=== PATIENT | female | born 1955 | race Caucasian/White ===

== ENCOUNTER 2017-10-26 02:38 | Inpatient (IN) | payer OTHER ==
[~2017-10-26] VITALS: Ht 152.4 cm; Wt 102.1 kg
[~2017-10-26 02:38] MED LIST: APAP500 PO; ASPIRIN EC81 M1 PO; AUGMENTIN 875875 MG PO; CEFTIN 250 MG250 MG PO; CIPROFLOXACIN500 M1 PO; GLUCOPHAGE1000 MG PO; HYDROCHLOROTH12.5 MG; HYDROCHLOROTHIAZIDE PO; METFORMIN HCL500 MG; MOBIC15 MG PO; NIACIN 100MG T100 M1; NIACIN FLUSH FREE PO; ONDANSETRON HCL4 M2 PO; ONGLYZA5 MG; PEPCID PO; PERCOCET 5-3251 EACH PO; SIMVASTATIN10 MG PO; TOPROL XL50 MG PO; VITAMIN D1000 UNI1 PO; VITAMIN D400 UNI1; ZOFRAN ODT4 MG PO
[2017-10-26 02:40] VITALS: BP 133/76
[2017-10-26 03:05] LABS: ABSOLUTE NEUTROPHILS 14.1 thou/uL (1.4-8.2); BASOPHILS 0.5 % (0.0-2.0); EOSINOPHILS 0.3 % (0.0-3.0); HEMATOCRIT 45.3 % (37.0-47.0); HEMOGLOBIN 15.3 gm/dL (12.0-15.0); LYMPHOCYTES 9.3 % (24.0-44.0); MCH 30.3 pg (26.0-34.0); MCHC 33.8 g/dL (28.0-37.0); MCV 89.8 fL (80.0-100.0); MONOCYTES 3.8 % (1.0-8.0); PLATELET COUNT 290 thou/uL (150-400); POLYS 86.1 % (36.0-66.0); RBC 5.05 mil/uL (4.20-5.00); WBC 16.4 thou/uL (4.0-11.0)
[2017-10-26 03:14] LABS: CALCIUM 10.1 mg/dL (8.5-10.1); CREATININE 0.9 mg/dL (0.6-1.0); POTASSIUM 4.2 mmol/L (3.5-5.1)
[2017-10-26] MEDS ORDERED: PIOGLITAZONE15 MG (03:16)
[2017-10-26] MEDS ORDERED: FISH OIL 1,001000 M2 PO (03:16)
[2017-10-26] MEDS ORDERED: ZANTAC 150MG T150 MG PO (03:17)
[2017-10-26] MEDS ORDERED: ONDANSETRON ODT4 MG PO (03:18)
[2017-10-26 03:20] LABS: ALBUMIN 4.1 g/dL (3.4-5.0); DIRECT BILIRUBIN 0.1 mg/dL (<0.1-0.3); TOTAL BILIRUBIN 0.5 mg/dL (<0.1-1.0); TOTAL PROTEIN 8.4 g/dL (6.4-8.2)
[2017-10-26 15:33] VITALS: BP 113/55
[2017-10-26 20:48] VITALS: BP 127/67
[2017-10-26 22:11] LABS: GLYCOHEMOGLOBIN (HGB A1C) 8.3 % (4.8-5.6)
[2017-10-27 04:17] VITALS: BP 150/80
[2017-10-27 06:36] LABS: BASOPHILS 0.7 % (0.0-2.0); EOSINOPHILS 1.2 % (0.0-3.0); HEMATOCRIT 38.2 % (37.0-47.0); LYMPHOCYTES 16.2 % (24.0-44.0); MCH 30.5 pg (26.0-34.0); MCHC 34.1 g/dL (28.0-37.0); MCV 89.4 fL (80.0-100.0); MONOCYTES 9.3 % (1.0-8.0); PLATELET COUNT 251 thou/uL (150-400); POLYS 72.6 % (36.0-66.0); RBC 4.27 mil/uL (4.20-5.00); RDW 13.9 % (10.5-14.5); WBC 12.4 thou/uL (4.0-11.0)
[2017-10-27 06:47] LABS: CALCIUM 8.5 mg/dL (8.5-10.1); CREATININE 0.8 mg/dL (0.6-1.0); MAGNESIUM 1.9 mg/dL (1.8-2.4); POTASSIUM 3.6 mmol/L (3.5-5.1)
[2017-10-27 08:32] VITALS: BP 130/66
[2017-10-27 16:33] VITALS: BP 139/65
[2017-10-27 22:02] VITALS: BP 125/61
[2017-10-28 03:33] LABS: HEMATOCRIT 36.9 % (37.0-47.0); HEMOGLOBIN 12.4 gm/dL (12.0-15.0); MCH 30.2 pg (26.0-34.0); MCHC 33.6 g/dL (28.0-37.0); MCV 89.8 fL (80.0-100.0); RBC 4.11 mil/uL (4.20-5.00); RDW 14.3 % (10.5-14.5); WBC 11.1 thou/uL (4.0-11.0)
[2017-10-28 03:57] LABS: CALCIUM 8.6 mg/dL (8.5-10.1); CREATININE 0.6 mg/dL (0.6-1.0); POTASSIUM 3.1 mmol/L (3.5-5.1)
[2017-10-28 04:53] VITALS: BP 130/68
[2017-10-28 08:43] VITALS: BP 143/76
[2017-10-28] MEDS ORDERED: FLAGYL500 MG PO (15:40)
[2017-10-28] MEDS ORDERED: AUGMENTIN 875-1 EACH PO (15:40)
[2017-10-28] MEDS ORDERED: PROTONIX 20 MG20 M1 PO (15:41)
[2017-10-28 15:48] VITALS: BP 113/76
== END 2017-10-28 16:20 | disposition home or self-care (01) | DRG 872 ==
LOC: ER 02:38 → 4S 04:14 → EROBS 04:14 → 4S 15:46 → ENTRNSPT 10-28 16:16 → 4S 10-28 16:20
PROVIDERS: Emergency Medicine; Hospitalist; Nurse Practitioner
DX: A41.9 Sepsis, unspecified organism (principal); K56.7 Ileus, unspecified; K52.9 Noninfective gastroenteritis and colitis, unspecified; E78.5 Hyperlipidemia, unspecified; E11.65 Type 2 diabetes mellitus with hyperglycemia; D72.829 Elevated white blood cell count, unspecified; E78.00 Pure hypercholesterolemia, unspecified; I10 Essential (primary) hypertension; Z96.641 Presence of right artificial hip joint; Z90.49 Acquired absence of other specified parts of digestive tract; Z85.41 Personal history of malignant neoplasm of cervix uteri; Z90.710 Acquired absence of both cervix and uterus; Z92.21 Personal history of antineoplastic chemotherapy; Z92.3 Personal history of irradiation; Z88.1 Allergy status to other antibiotic agents; Z88.2 Allergy status to sulfonamides; Z87.891 Personal history of nicotine dependence; Z80.8 Family history of malignant neoplasm of other organs or systems; Z81.8 Family history of other mental and behavioral disorders; Z79.82 Long term (current) use of aspirin; Z79.899 Other long term (current) drug therapy
CPT/HCPCS: 10195

== ENCOUNTER 2018-11-05 14:40 | Inpatient (IN) | payer OTHER ==
[~2018-11-05] VITALS: Ht 160 cm; Wt 93.4 kg
[~2018-11-05 14:40] MED LIST changes: +AUGMENTIN 875-1 EACH PO; +FISH OIL 1,001000 M2 PO; +FLAGYL500 MG PO; +ONDANSETRON ODT4 MG PO; +PIOGLITAZONE15 MG; +PROTONIX 20 MG20 M1 PO; +ZANTAC 150MG T150 MG PO
[2018-11-05 14:43] VITALS: BP 127/76
[2018-11-05 15:35] LABS: ABSOLUTE NEUTROPHILS 6.7 thou/uL (1.4-8.2); BASOPHILS 0.7 % (0.0-2.0); EOSINOPHILS 0.9 % (0.0-3.0); HEMATOCRIT 39.5 % (37.0-47.0); HEMOGLOBIN 13.1 gm/dL (12.0-15.0); LYMPHOCYTES 18.2 % (24.0-44.0); MCH 29.5 pg (26.0-34.0); MCHC 33.2 g/dL (28.0-37.0); PLATELET COUNT 320 thou/uL (150-400); POLYS 69.2 % (36.0-66.0); RBC 4.44 mil/uL (4.20-5.00); RDW 14.8 % (10.5-14.5); WBC 9.7 thou/uL (4.0-11.0)
[2018-11-05 15:45] LABS: ANION GAP 6 mmol/L (7-16); BUN 16 mg/dL (7-18); CALCIUM 9.4 mg/dL (8.5-10.1); CHLORIDE 98 mmol/L (98-107); CO2 34 mmol/L (21-32); CREATININE 1.1 mg/dL (0.6-1.0); GLUCOSE 168 mg/dL (74-106); POTASSIUM 3.1 mmol/L (3.5-5.1); SODIUM 138 mmol/L (136-145)
[2018-11-05 15:55] LABS: TROPONIN-I <0.06 ng/mL (<0.06)
[2018-11-05 16:20] VITALS: BP 98/62
[2018-11-05 17:26] VITALS: BP 117/57
[2018-11-05 17:51] VITALS: BP 137/68
--- NOTE | 2018-11-05 18:00 | NUR ---
PT REPORTS DRY COUGH X 1 1/2 DAYS..[facility] AND REPORTED LT JAW PAIN AND LT SHOULDER PAIN..CURRENTLY DENIES ANY CHEST PAIN..TROP NEG..
[2018-11-05 19:05] VITALS: BP 108/60
--- NOTE | 2018-11-05 22:11 | EKG ---
[address] [address] ELECTROCARDIOGRAM REPORT Name: MARBIN HATCH Room #: 357-P ADM IN M.R.#: [id number] Admission: 11/05/18 Attend Phys: Alysha More MD Discharge: Date of : 51 Report #: [id number] THIS REPORT FOR: //name// [facility] ED Test Date: 2018-11-05 Test Time: 14:57:30 Pat Name: MARBIN HATCH Department: Room: 357 Gender: F Rag Willow Operator: DEMAR : 1955 Requested By: Tahmina White Order Number: [id number] MD: Naif Estrada Measurements Intervals [place] Rate: 76 P: 31 GA: 145 QRS: -21 QRSD: 94 T: 20 QT: 391 QTc: 440 Interpretive Statements Sinus rhythm Borderline left axis deviation Compared to ECG 08/28/2016 23:35:53 No significant changes Electronically Signed On 11-05-2018 22:11:06 PLANER TAILER by Naif Estrada [email or web address] <ELECTRONICALLY SIGNED> By: Naif Estrada MD 11/05/18 2211 56 56 Naif Estrada MD /SHARLENE
[2018-11-05 23:45] VITALS: BP 102/62
--- NOTE | 2018-11-06 04:39 | NUR ---
pts stays at bedside. she has been resting quietly tonight. denies pain. she has been talkative and friendly. no complaints of needing her cough medicine tonight. gets up ad anderson to the restroom. no concerns voiced.
[2018-11-06 04:50] VITALS: BP 119/71
[2018-11-06 05:20] LABS: HEMATOCRIT 36.5 % (37.0-47.0); HEMOGLOBIN 12.3 gm/dL (12.0-15.0); MCH 29.8 pg (26.0-34.0); MCHC 33.7 g/dL (28.0-37.0); MCV 88.4 fL (80.0-100.0); RBC 4.13 mil/uL (4.20-5.00); RDW 15.2 % (10.5-14.5)
[2018-11-06 05:32] LABS: ALBUMIN 2.8 g/dL (3.4-5.0); ANION GAP 7 mmol/L (7-16); BUN 12 mg/dL (7-18); CALCIUM 9.2 mg/dL (8.5-10.1); CHLORIDE 100 mmol/L (98-107); CO2 32 mmol/L (21-32); CREATININE 0.9 mg/dL (0.6-1.0); GLUCOSE 135 mg/dL (74-106); POTASSIUM 3.1 mmol/L (3.5-5.1); SGOT 13 U/L (15-37); SGPT 15 U/L (30-65); SODIUM 139 mmol/L (136-145); TOTAL BILIRUBIN 0.3 mg/dL (<0.1-1.0); TOTAL PROTEIN 7.1 g/dL (6.4-8.2); TROPONIN-I <0.06 ng/mL (<0.06)
[2018-11-06 07:22] VITALS: BP 107/66
--- NOTE | 2018-11-06 07:44 | NUR ---
I PHONED MOLINA ABOUT MORNING POTASSIUM LEVEL THIS AM. 3.1, HE STATED THAT HE WILL LOOK INTO IT WHEN HE SEES HER. NO FURTHER ORDERS AT THIS TIME.
[2018-11-06 09:16] LABS: CHOLESTEROL 151 mg/dL (<200); HDL CHOLESTEROL 35 mg/dL (>40); LDL CHOLESTEROL 85 mg/dL (<100); TC:HDL 4.3 Ratio (Not establshd); TRIGLYCERIDE 158 mg/dL (<150); VLDL 32 mg/dL (<40)
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
--- NOTE | 2018-11-06 15:56 | 2DMMODE ---
[address] [address] 2 D/M-MODE ECHOCARDIOGRAM Name: ELIANE HATCHYULIANA Torres Room #: 357-P ADM IN M.R.#: [id number] Admission: 11/05/18 Attend Phys: Alysha More, Discharge: Date of : 51 Date of Service: 11/06/18 1556 Report #: [id number] THIS REPORT FOR: //name// APPROVED REPORT Study performed: 11/06/2018 15:08:01 EXAM: Comprehensive 2D, Doppler, and color-flow Echocardiogram Patient Location: Echo lab Room #: 357 Status: routine BSA: 1.93 HR: 53 bpm BP: 107/66 mmHg Rhythm: NSR Other Information Study Quality: Adequate Indications Diabetes Chest Pain Hypertension/HDD 2D Dimensions IVC: 17.00 mm Volumes Left Atrial Volume (Systole) LA ESV Index: 29.00 mL/m2 Tricuspid Valve PA Pressure: 27.00 mmHg Left Ventricle The left ventricle is normal size. Mild concentric left ventricular hypertrophy. The left ventricular systolic function is normal. The left ventricular ejection fraction is within the normal range. LVEF is 50-55%. Grade I - abnormal relaxation pattern. Right Ventricle The right ventricle is normal size. The right ventricular systolic function is normal. [facility] [address] [place] [address] 2 D/M-MODE ECHOCARDIOGRAM Name: MARBIN HATCH Room #: 357-P ADM IN M.R.#: [id number] Admission: 11/05/18 Attend Phys: Alysha More, Discharge: Date of : 51 Date of Service: 11/06/18 1556 Report #: [id number] The left atrium size is normal. The right atrium size is normal. Aortic Valve The aortic valve is normal in structure. No aortic regurgitation is present. There is no aortic valvular stenosis. Mitral Valve The mitral valve is normal in structure. Trace mitral regurgitation. No evidence of mitral valve stenosis. Tricuspid Valve The tricuspid valve is normal in structure. There is trace tricuspid regurgitation. Estimated PAP 27 mmHg. There is no pulmonary hypertension. Pulmonic Valve The pulmonary valve is normal in structure. Trace pulmonic regurgitation. Great Vessels The aortic root is normal in size. IVC is normal in size and collapses >50% with inspiration. Pericardium There is no pericardial effusion. <Conclusion> The left ventricle is normal size. Mild concentric left ventricular hypertrophy. The left ventricular systolic function is normal. Grade I - abnormal relaxation pattern. The right ventricle is normal size. The left atrium size is normal. The aortic valve is normal in structure. Trace mitral regurgitation. There is trace tricuspid regurgitation. Estimated PAP 27 mmHg. <ELECTRONICALLY SIGNED> By: Aaron Paulino MD 11/06/18 1556 1556 1556 Aaron Paulino MD /INF
[2018-11-06 15:58] VITALS: BP 114/57
[2018-11-06 17:28] VITALS: BP 114/57
[2018-11-06 17:50] VITALS: BP 114/57
[2018-11-06 23:11] LABS: GLYCOHEMOGLOBIN (HGB A1C) 8.5 % (4.8-5.6)
--- NOTE | 2018-11-10 09:00 | H ---
[facility] [place] [address] HISTORY AND PHYSICAL Name: MARBIN HATCH Room #: 357-P [facility] IN M.R.#: [id number] Admission: 11/05/18 Attend Phys: Alysha More MD Discharge: 11/06/18 Date of : 51 Report #: [id number] THIS REPORT FOR: //name// CC: Alysha Patricia REASON FOR PRESENTATION: Cough and chest pain. HISTORY OF PRESENT ILLNESS: This is a 63-year-old with past medical history of diabetes mellitus and hypertension. No known coronary artery disease. She is known to have cervical cancer, post-hysterectomy, chemo and radiotherapy. She is also known to have small-bowel obstruction in the past. She is a nonsmoker. She presented to the Emergency Room, reporting that she has been having cough for the last few days after a trip back from [place]. She denies any fever or chills. This morning, she started to have left jaw pain with radiation to the left upper extremity. No chest pain. No nausea or vomiting. No excessive sweating. No syncope. Her mother had heart attack in her 50s. Because of her risk factors, she will be admitted to rule out an acute coronary event. PAST MEDICAL HISTORY: 1. Diabetes mellitus. 2. Hypertension. 3. Post-appendectomy. 4. Post-cholecystectomy. 5. Right hip surgery. 6. Cervical cancer, post-hysterectomy. 7. Bowel obstruction. 8. Exploratory laparotomy. 9. Hyperlipidemia. 10. Ex-smoker. MEDICATIONS: 1. Actos. 2. Ranitidine. 3. Metoprolol. 4. Simvastatin. 5. Aspirin. 6. Hydrochlorothiazide. ALLERGIES: CIPRO, NAPROXEN, SULFA. SOCIAL HISTORY: She is a customer services manager. No drug or alcohol abuse. FAMILY HISTORY: Mom had heart attack. Father was asthmatic. One of her brothers had bone cancer. [facility] [address] [email or web address] [address] HISTORY AND PHYSICAL Name: MARBIN HATCH Room #: 357-P [facility] IN [facility].#: [id number] Admission: 11/05/18 Attend Phys: Alysha More MD Discharge: 11/06/18 Date of : 51 Report #: [id number] REVIEW OF SYSTEMS: GENERAL: Malaise, but no fever or chills. CARDIOVASCULAR: No chest pain. No palpitation. However, positive for jaw pain and left upper extremity pain. PULMONARY: As per the history of present illness. GASTROINTESTINAL: No nausea or vomiting. GENITOURINARY: No frequency, no urgency. MUSCULOSKELETAL: As per the history of present illness. No back pain, no morning stiffness. HEMATOLOGICAL AND LYMPHATIC: No easy bruisability. No epistaxis. PHYSICAL EXAMINATION: GENERAL: She is alert, oriented, in no apparent distress. VITAL SIGNS: Pulse rate is 79, temperature 36.8. HEAD AND NECK: No jugular venous distention, no bruit, no thyromegaly. CHEST: Clear to auscultation bilaterally with no crackles. CARDIOVASCULAR: No rub detected. ABDOMEN: Soft, nontender with no hepatosplenomegaly. LOWER EXTREMITIES: No edema. LABORATORY VALUES: Reviewed. White blood cell count 9.7, hemoglobin 13.1, potassium 3.1, creatinine 1.1. Blood sugar 168. ASSESSMENT, IMPRESSION AND PLAN: 1. Chest pain. 2. Diabetes mellitus. 3. Hypertension. 4. Hyperlipidemia. 5. Known history of cervical cancer. 6. We will admit the patient to rule out acute coronary syndrome. 7. Serial troponins and EKGs. 8. Resume her diabetic medications with sliding scale insulin. 9. Hold hydrochlorothiazide given her low blood pressure. 10. Continue with metoprolol, aspirin, statin. 11. Cardiac consultations. 12. Cardiac echo in the morning. 13. Routine gastrointestinal and deep venous thrombosis prophylaxis. <ELECTRONICALLY SIGNED> By: Alysha More MD 11/10/18 0900 1656 1743 Alysha More MD /nt
== END 2018-11-06 18:01 | disposition home or self-care (01) | DRG 152 ==
LOC: ER 14:40 → EROBS 15:52 → 3W 15:52
PROVIDERS: Emergency Medicine; Nurse Practitioner Adult Health; ADMIT Hospitalist
DX: J06.9 Acute upper respiratory infection, unspecified (principal); E43 Unspecified severe protein-calorie malnutrition; R07.9 Chest pain, unspecified; E11.9 Type 2 diabetes mellitus without complications; I10 Essential (primary) hypertension; R91.1 Solitary pulmonary nodule; R68.84 Jaw pain; E87.6 Hypokalemia; R63.4 Abnormal weight loss; E78.5 Hyperlipidemia, unspecified; Z79.899 Other long term (current) drug therapy; Z88.2 Allergy status to sulfonamides; Z88.8 Allergy status to other drugs, medicaments and biological substances; Z88.1 Allergy status to other antibiotic agents; Z91.040 Latex allergy status; Z85.41 Personal history of malignant neoplasm of cervix uteri; Z90.49 Acquired absence of other specified parts of digestive tract; Z90.710 Acquired absence of both cervix and uterus; Z82.49 Family history of ischemic heart disease and other diseases of the circulatory system; Z87.891 Personal history of nicotine dependence; Z68.36 Body mass index [BMI] 36.0-36.9, adult; Z92.21 Personal history of antineoplastic chemotherapy; Z92.3 Personal history of irradiation
CPT/HCPCS: 10879

== ENCOUNTER 2020-09-04 15:30 | Inpatient (IN) | payer OTHER ==
[~2020-09-04] VITALS: Ht 160 cm; Wt 98.0 kg
[2020-09-04 15:55] VITALS: BP 108/74
[2020-09-04 16:37] LABS: ABSOLUTE NEUTROPHILS 7.5 thou/uL (1.4-8.2); BASOPHILS 0.7 % (0.0-2.0); HEMATOCRIT 44.5 % (37.0-47.0); HEMOGLOBIN 15.4 gm/dL (12.0-15.0); LYMPHOCYTES 16.9 % (24.0-44.0); MCH 31.5 pg (26.0-34.0); MCHC 34.7 g/dL (28.0-37.0); MCV 90.8 fL (80.0-100.0); MONOCYTES 10.2 % (1.0-8.0); PLATELET COUNT 226 thou/uL (150-400); POLYS 72.2 % (36.0-66.0); RDW 13.4 % (10.5-14.5); WBC 10.3 thou/uL (4.0-11.0)
[2020-09-04 16:54] LABS: ALBUMIN 3.4 g/dL (3.4-5.0); ANION GAP 11 mmol/L (7-16); BUN 23 mg/dL (7-18); CALCIUM 9.3 mg/dL (8.5-10.1); CHLORIDE 96 mmol/L (98-107); CO2 28 mmol/L (21-32); CREATININE 1.4 mg/dL (0.6-1.0); DIRECT BILIRUBIN 0.2 mg/dL (<0.1-0.2); GLUCOSE 200 mg/dL (74-106); SGOT 21 U/L (15-37); SGPT 14 U/L (30-65); SODIUM 135 mmol/L (136-145); TOTAL BILIRUBIN 0.6 mg/dL (0.2-1.0); TOTAL PROTEIN 8.5 g/dL (6.4-8.2); TROPONIN-I <0.06 ng/mL (<0.06)
[2020-09-04 16:58] LABS: POTASSIUM 2.6 mmol/L (3.5-5.1)
--- NOTE | 2020-09-04 17:00 | EKG ---
[facility] [place] [address] ELECTROCARDIOGRAM REPORT Name: MARBIN HATCH Room #: PRE [facility]..#: [id number] Admission: Attend Phys: Discharge: Date of : 51 Report #: [id number] THIS REPORT FOR: cc: Candace Abbott Diane C. DO Santiago, Patrick MD [facility] THIS REPORT FOR: //name// [facility] ED Test Date: 2020-09-04 Test Time: 16:11:54 Pat Name: MARBIN HATCH Department: Room: Gender: F Divider Operator: ANILA CURRY : 1955 Requested By: Terry Pyle Order Number: [id number] MD: Guy Arroyo Measurements Intervals [place] Rate: 106 P: 30 LA: 178 QRS: -18 QRSD: 88 T: 72 QT: 348 QTc: 463 Interpretive Statements Sinus tachycardia Probable left atrial enlargement Probable LVH with secondary repol abnrm Compared to ECG 11/05/2018 14:57:30 Sinus rhythm no longer present Electronically Signed On 09-04-2020 17:00:10 SLACKMAN by Guy Arroyo [email or web address] <ELECTRONICALLY SIGNED> By: Guy Arroyo MD, FACC 09/04/20 1700 10 10 Guy Arroyo MD, FAC /EPI
[2020-09-04 17:26] VITALS: BP 110/50
--- NOTE | 2020-09-04 17:31 | NUR ---
THIS NURSE ACCIDENTALLY DOCUMENTED DISCHARGE SUMMARY ON THE WRONG PT.
[2020-09-04 17:43] LABS: HCO3 28.3 mmol/L (22.0-26.0); PCO2 41.5 mmHg (35.0-45.0); PO2 58.4 mmHg (80.0-100.0); pH 7.452 (7.360-7.450); sO2 91.5 % (92.0-98.0)
[2020-09-04 22:06] VITALS: BP 108/74
[2020-09-04 22:21] VITALS: BP 108/53
[2020-09-04 22:39] VITALS: BP 112/90
[2020-09-04 23:04] VITALS: BP 99/54
[2020-09-05 03:04] VITALS: BP 115/56
--- NOTE | 2020-09-05 03:31 | NUR ---
Admission history and assessments completed. Careplan initiated. IVfluids started in ED. Remdesivir started. Patient requiring 4L oxygen/NC sat 94%. Afebrile. Vital signs and rhythm stable. Gait steady , up to BSC without difficulty.
[2020-09-05 06:49] LABS: ALBUMIN 2.6 g/dL (3.4-5.0); CALCIUM 8.1 mg/dL (8.5-10.1); CREATININE 0.9 mg/dL (0.6-1.0); POTASSIUM 3.3 mmol/L (3.5-5.1); TOTAL BILIRUBIN 0.3 mg/dL (0.2-1.0); TOTAL PROTEIN 6.9 g/dL (6.4-8.2)
[2020-09-05 08:40] VITALS: BP 125/57
--- NOTE | 2020-09-05 10:46 | NUR ---
PT. CALM THIS AM, PLEASANT OVERALL NO SIGN'S OF DISTRESS, BREATHING WELL NO SIGN'S OF LABORED BREATHING. ANSWERD QUESTIONS ABOUT DISEASE PROCESS OVERALL. AMBULATES TO CHAIR FOR EXERCISE. NSR TO SB NO ECTOPY. IV FLUSHED AND BLOOD RETURN OBTAINED. CALL LIGHT WITHIN REACH.
--- NOTE | 2020-09-05 11:05 | NUR ---
Patient admits with cough/weakness. Patient positive for COVID 19. Spoke with patient via phone. patient works at [employer] in [place] [employer]. She lives at home with spouse and family. She has 2 dtrs and son. Son resides in [place]. Her PCP Dr Muñoz from [facility]. 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 She drives and works. She reports her employment aware she is at hospital. She is currrently on oxygen. 2 steps to enter home and flight of steps to basement. Patients dtr Kelly John is currently in room [address] [facility] ICU COVID positive on a vent. Patient reports her granddtr, Clifford dtr will be in [facility]. She reports her granddtr is coming from [place]. She is in [employer] and [employer] assisted with her coming home. Her dtr Kiara also has COVID and remains at home. She reports her spouse does not have. Casemgt following for dc planning.
--- NOTE | 2020-09-05 17:40 | NUR ---
PT. DID NOT EAT MUCH OF HER DINNER TONIGHT-20%. ON 2L NASAL CANNULA AND DENIES ANY SOB. NEW IF IS IN LEFT FOREARN-UNDERAM AREA PER IV TEAM, FLUSHES WITH STRONG BLOOD RETURN. RESUMED IV INFUSION THAT WAS ON HOLD UNTILWE GOT A NEW IV LINE PLACED. SAID HER CHEST FEELS "SORE A LITTE"-WHEN SHE COUGHS REALLY HARD BUT NOT AT REST OR TALKING. VERY PLEASANT WOMAN AND APPRECIATIVE OF HER CARE, "MY FAMILY [facility] AND MY DAUGHTER GAVE TO HER TWINS HERE 21 YEARS AGO"..
[2020-09-05 19:19] VITALS: BP 118/66
[2020-09-06 03:48] VITALS: BP 106/53
--- NOTE | 2020-09-06 04:17 | NUR ---
ASSESSED AT START OF SHIFT. PT A&OX4. UP TO THE BSC. HAD A BM HIS SHIFT. IV INTACT [facility] FLUIDS INFUSING. DENIES CHST PAIN, N/V. BSG CHECKED AND INSULIN GIVEN. ON 3L OF O2. CALL LIGHT AT REACH AND WILL CONT WITH POC TILL EOS.
[2020-09-06 06:08] LABS: ABSOLUTE NEUTROPHILS 5.3 thou/uL (1.4-8.2); BASOPHILS 0.1 % (0.0-2.0); HEMATOCRIT 37.2 % (37.0-47.0); LYMPHOCYTES 15.6 % (24.0-44.0); MCH 30.6 pg (26.0-34.0); MCHC 33.1 g/dL (28.0-37.0); MCV 92.3 fL (80.0-100.0); MONOCYTES 11.9 % (1.0-8.0); PLATELET COUNT 223 thou/uL (150-400); POLYS 72.4 % (36.0-66.0); RBC 4.03 mil/uL (4.20-5.00); RDW 14.1 % (10.5-14.5); WBC 7.3 thou/uL (4.0-11.0)
[2020-09-06 06:13] LABS: HEMOGLOBIN 12.3 gm/dL (12.0-15.0)
[2020-09-06 06:17] LABS: FIBRINOGEN 326.1 mg/dL (210-360); INR 1.2
[2020-09-06 06:19] LABS: ALBUMIN 2.5 g/dL (3.4-5.0); CALCIUM 8.7 mg/dL (8.5-10.1); CREATININE 0.9 mg/dL (0.6-1.0); POTASSIUM 4.1 mmol/L (3.5-5.1); TOTAL BILIRUBIN 0.2 mg/dL (0.2-1.0); TOTAL PROTEIN 6.3 g/dL (6.4-8.2)
[2020-09-06 06:21] LABS: ALBUMIN 2.5 g/dL (3.4-5.0); DIRECT BILIRUBIN < 0.1 mg/dL (<0.1-0.2); SGOT 14 U/L (15-37); SGPT 12 U/L (30-65); TOTAL BILIRUBIN 0.2 mg/dL (0.2-1.0); TOTAL PROTEIN 6.3 g/dL (6.4-8.2)
[2020-09-06 08:14] VITALS: BP 131/75
[2020-09-06 12:50] VITALS: BP 155/78
--- NOTE | 2020-09-06 15:50 | NUR ---
ASSUMED CARE OF PT AT 0700. PT ALERT AND ORIENTED X4 IN NO ACUTE DISTRESS. TEARFUL WHEN FINDING NEWS OF DTR RECENT PASSING. ON PHONE WITH FAMILY MEMBERS, WILLING TO DISCUSS HER FEELINGS WITH STAFF. REMAINS ON 2L NC. WCM.
[2020-09-06 17:31] VITALS: BP 132/60
[2020-09-06 19:29] VITALS: BP 102/58
[2020-09-07 03:26] VITALS: BP 123/69
[2020-09-07 06:50] LABS: ALBUMIN 2.6 g/dL (3.4-5.0); ANION GAP 9 mmol/L (7-16); BUN 16 mg/dL (7-18); CALCIUM 8.8 mg/dL (8.5-10.1); CHLORIDE 112 mmol/L (98-107); CO2 24 mmol/L (21-32); CREATININE 0.8 mg/dL (0.6-1.0); DIRECT BILIRUBIN < 0.1 mg/dL (<0.1-0.2); GLUCOSE 128 mg/dL (74-106); PHOSPHORUS 1.7 mg/dL (2.5-4.9); POTASSIUM 3.9 mmol/L (3.5-5.1); SGOT 18 U/L (15-37); SGPT 17 U/L (30-65); SODIUM 145 mmol/L (136-145); TOTAL BILIRUBIN 0.4 mg/dL (0.2-1.0); TOTAL PROTEIN 6.2 g/dL (6.4-8.2)
[2020-09-07 07:31] VITALS: BP 128/62
--- NOTE | 2020-09-07 09:09 | EKG ---
[facility] [place] [address] ELECTROCARDIOGRAM REPORT Name: MARBIN HATCH Room #: 358-P ADM IN M.R.#: [id number] Admission: 09/04/20 Attend Phys: Lorin Garcia MD Discharge: Date of : 51 Report #: [id number] THIS REPORT FOR: cc: Candace Abbott Diane C. DO Santiago, Patrick MD [facility] ~ THIS REPORT FOR: //name// [facility] Test Date: 2020-09-06 Test Time: 23:27:50 Pat Name: MARBIN HATCH Department: Room: 358 P Gender: F Client Business Manager: [id number] : 1955 Requested By: Radha Hong Order Number: [id number] MD: Guy Arroyo Measurements Intervals [place] Rate: 129 P: OR: QRS: -6 QRSD: 81 T: 8 QT: 316 QTc: 463 Interpretive Statements Atrial fibrillation Borderline repolarization abnormality Compared to ECG 09/04/2020 16:11:54 Sinus tachycardia no longer present Electronically Signed On 09-07-2020 9:09:23 CLICKING MACHINE OPERATOR by Guy Arroyo [email or web address] <ELECTRONICALLY SIGNED> By: Guy Arroyo MD, FACC 09/07/20 0909 26 Guy rAroyo MD, [facility] /EPI
[2020-09-07 11:03] VITALS: BP 128/73
[2020-09-07 15:41] VITALS: BP 143/89
[2020-09-07 21:50] VITALS: BP 115/72
[2020-09-08 04:46] VITALS: BP 145/81
[2020-09-08 06:41] LABS: ALBUMIN 2.7 g/dL (3.4-5.0); DIRECT BILIRUBIN < 0.1 mg/dL (<0.1-0.2); SGOT 13 U/L (15-37); SGPT 12 U/L (30-65); TOTAL BILIRUBIN 0.2 mg/dL (0.2-1.0); TOTAL PROTEIN 6.4 g/dL (6.4-8.2)
--- NOTE | 2020-09-08 07:39 | NUR ---
Pt. slept well during the night. Maintaining O2 sat in the mid to upper 90's. She does get short of breath with exertion. Cont. on enhanced precaution , afebrile. She reported loose bm last night. Voiding per commode.
[2020-09-08 11:54] VITALS: BP 155/85
--- NOTE | 2020-09-08 13:08 | NUR ---
PT CARE ASSUMED AT 0700, PT ALERT AND ORIENTED X4, DENIES ANY CHEST PAIN. COMPLAINS OF NAUSEA.NAUSEA AT TIMES, NOT VOMITTING. PT IS ON 3L OF OXYGEN, SOB WITH EXERTION. HAS A STRONG, NON PRODUCTIVE COUGH. PT HR IN 140'S WHEN UP TO BSC, DR. ARGUETA IS AWARE. ASSESSMENT AND VITAL SIGNS COMPLETED. DENIES ANY NEEDS AT THE MOMENT, WILL CONTINUE TO MONITOR.
[2020-09-08 15:07] VITALS: BP 122/69
[2020-09-08 21:25] VITALS: BP 145/93
[2020-09-09 03:30] VITALS: BP 135/84
[2020-09-09 06:15] LABS: ALBUMIN 2.8 g/dL (3.4-5.0); ANION GAP 12 mmol/L (7-16); BUN 14 mg/dL (7-18); CALCIUM 9.3 mg/dL (8.5-10.1); CHLORIDE 106 mmol/L (98-107); CO2 25 mmol/L (21-32); CREATININE 0.9 mg/dL (0.6-1.0); DIRECT BILIRUBIN < 0.1 mg/dL (<0.1-0.2); GLUCOSE 210 mg/dL (74-106); PHOSPHORUS 3.4 mg/dL (2.5-4.9); POTASSIUM 4.3 mmol/L (3.5-5.1); SGOT 13 U/L (15-37); SGPT 17 U/L (30-65); SODIUM 143 mmol/L (136-145); TOTAL BILIRUBIN 0.3 mg/dL (0.2-1.0); TOTAL PROTEIN 6.8 g/dL (6.4-8.2)
[2020-09-09 07:28] VITALS: BP 153/100
--- NOTE | 2020-09-09 07:53 | NUR ---
Pt. didn't sleep much till later this am due to noises in the next room. Cough med given x 1. Maintaining O2 sat in the mid to upper 90's on 2L/NC. She did report shortness of breath with exertion. A fib with controlled rate then gets tachycardic with activities. Cont. on enhanced precaution , afebrile. Making some progress towards care plan goals.
[2020-09-09 11:17] VITALS: BP 143/69
--- NOTE | 2020-09-09 14:49 | NUR ---
KELSEY reviewed chart and spoke with nursing. Pt remains in Enhanced Isolation due to COVID-19. Pt is afebrile and requiring O2. Pt is on IV abx and IV steroids. Pt is completing course of Remdesivir. Pt's spouse is also in the hospital with COVID. Pt's dtr on Tuesday, 09/06. Discharge home is anticipated for tomorrow. KELSEY placed call to pt's room no answer. Pt may need rest/exercise oximetry to determine if pt needs home O2. KELSEY is following to assist as needed with discharge planning.
[2020-09-09 15:22] VITALS: BP 151/95
--- NOTE | 2020-09-09 18:16 | NUR ---
PT CARE ASSUMED AT 0700, ALERT AND ORIENTED X4, PT DENIES ANY PAIN,. NAUSEA AND VOMITTING. PT TITRATED PT OXYGEN DOWN AND IS NOW IN ROOM AIR, NO SIGNS OF DISTRESS OR SOB WITH EXERTION. PT IS UP TO BATHROOM INDEPENDENTLY, CONTINUES TO BE TACHYCARDIAC WHEN UP. NS WITH POTASSIUM DC PER DR. WALKER. PT IS PROGRESSING TOWARDS POC. DENIES ANY NEEDS AT THE MOMENT. WILL CONTINUE TO MONITOR.
[2020-09-09 19:40] VITALS: BP 129/74
[2020-09-10 04:39] VITALS: BP 125/82
--- NOTE | 2020-09-10 06:44 | NUR ---
Pt. slept some. Afebrile.Tolerating room air well with no respiratory distress. A fib with controlled rate then gets tachycardic with activities. Denies any concern and verbalized feeling better. Up ad anderson in room with steady gait. Making progress towards care plan goals.
[2020-09-10 06:48] LABS: ALBUMIN 2.9 g/dL (3.4-5.0); CALCIUM 9.5 mg/dL (8.5-10.1); CREATININE 0.9 mg/dL (0.6-1.0); POTASSIUM 4.4 mmol/L (3.5-5.1); TOTAL BILIRUBIN 0.4 mg/dL (0.2-1.0); TOTAL PROTEIN 6.3 g/dL (6.4-8.2)
[2020-09-10 07:36] VITALS: BP 139/83
[2020-09-10] MEDS ORDERED: CARDIZEM CD 18180 M3 PO (08:58)
[2020-09-10] MEDS ORDERED: GUAIFEN-CODEINE10 ML PO (08:58)
[2020-09-10] MEDS ORDERED: PREDNISONE 5 MG5 M1 PO (08:59)
[2020-09-10] MEDS ORDERED: ATENOLOL 50MG T50 M1 PO (09:02)
[2020-09-10] MEDS ORDERED: ELIQUIS5 MG PO (09:02)
[2020-09-10 11:09] VITALS: BP 104/77
--- NOTE | 2020-09-10 12:29 | NUR ---
PT CARE ASSUMED AT 0700, PT ALERT AND ORIENTED X4, DENIES ANY PAIN. NO SIGNS OF DISTRESS NOTED. PT HR CONTINUES TO INCREASE UP TO THE 150'S WHEN SHE GETS UP. CADIZEM PO GIVEN. DISCHARGE ORDERS GIVEN BY DR. WALKER, MADE AWARE ABOUT PT HR, STATED PT CAN GET D/C LATER TODAY WHEN HR IS IN WNL. PT WAS ON 1L OF OXYGEN, DISCONTINUED, PT SEEMS TO BE TOLERATING IT WELL. PT PROGRESSING TOWARDS CARE AND WILL POSSIBLE BE D/C TODAY.
--- NOTE | 2020-09-10 15:17 | NUR ---
KELSEY reviewed chart and spoke with nursing. Pt remains in Enhanced Isolation due to COVID-19. Pt is afebrile and not requiring O2. Pt to likely discharge home later today. KELSEY requested rest/exercise oximetry from attending physician earlier today. No response. KELSEY contacted ACQUISITIONS LOGISTICS ANALYST for hospitalist group and order entered this afternoon to determine if pt needs home O2. Pt's spouse discharged home earlier today. Pt's dtr to provide transportation home when ready for discharge. KELSEY is following to assist as needed with discharge planning.
[2020-09-10 15:30] VITALS: BP 100/64
[2020-09-10 16:08] VITALS: BP 100/64
[2020-09-10 18:09] VITALS: BP 100/64
--- NOTE | 2020-09-10 18:20 | NUR ---
WENT THROUGH DISCHARGE PAPERWORK AND MEDICATION INFORMATION WITH PATIENT. PT STATED UNDERSTANDING. IV TAKEN OUT AND TELEMETRY REMOVED. PT BELONGINGS ALL PACKED . WAITING FOR PT RIDE.
--- NOTE | 2020-09-11 11:16 | NUR ---
SW received call from pt stating that [employer] delivered a concentrator and 4 portable tanks to her home last evening. Pt was upset that the equipment had been delivered as she does not need home O2. SW reviewed chart. Pt did not qualify for home O2. Pt stating she was very happy with the care that she and her received at [facility]. Emotional support provided as pt talked about her dtr passing away last weekend. Pt had questions about returning to work. SW encouraged pt to contact HR at her employer. KELSEY notiifed [employer] liaison, to request follow up with pt and coordinate apple picker of DME. No additional SW needs identified at this time, but is available to assist should needs arise.
== END 2020-09-10 19:30 | disposition home or self-care (01) | DRG 871 ==
LOC: ER 15:30 → 3W 19:06 → EROBS 19:06 → 3W 23:18
PROVIDERS: Emergency Medicine; Specialist; ADMIT Hospitalist; ATTEND Hospitalist
PROC: XW033E5 Introduction of Remdesivir Anti-infective into Peripheral Vein, Percutaneous Approach, New Technology Group 5 (ICD-10-PCS; principal; 2020-09-05)
DX: A41.89 Other specified sepsis (principal); U07.1 COVID-19; J12.9 Viral pneumonia, unspecified; J96.01 Acute respiratory failure with hypoxia; N17.9 Acute kidney failure, unspecified; E87.1 Hypo-osmolality and hyponatremia; I48.91 Unspecified atrial fibrillation; E87.6 Hypokalemia; Z96.641 Presence of right artificial hip joint; E11.9 Type 2 diabetes mellitus without complications; I10 Essential (primary) hypertension; E78.00 Pure hypercholesterolemia, unspecified; Z90.710 Acquired absence of both cervix and uterus; Z90.89 Acquired absence of other organs; Z90.49 Acquired absence of other specified parts of digestive tract; Z87.891 Personal history of nicotine dependence; Z79.899 Other long term (current) drug therapy; Z79.82 Long term (current) use of aspirin; Z88.1 Allergy status to other antibiotic agents; Z88.2 Allergy status to sulfonamides
CPT/HCPCS: 10879

== ENCOUNTER → 2020-10-13 | Outpatient (CLI) | payer OTHER ==
[~2020-10-13] MED LIST changes: +ATENOLOL 50MG T50 M1 PO; +CARDIZEM CD 18180 M3 PO; +ELIQUIS5 MG PO; +GUAIFEN-CODEINE10 ML PO; +PREDNISONE 5 MG5 M1 PO
== END ==
LOC: SJCVCIMAG 07:46
PROVIDERS: ATTEND Internal Medicine Cardiovascular Disease
DX: I48.91 Unspecified atrial fibrillation (principal); R00.1 Bradycardia, unspecified; R94.31 Abnormal electrocardiogram [ECG] [EKG]; I10 Essential (primary) hypertension; E11.9 Type 2 diabetes mellitus without complications; E78.5 Hyperlipidemia, unspecified; Z79.82 Long term (current) use of aspirin; Z87.891 Personal history of nicotine dependence; Z79.899 Other long term (current) drug therapy

== ENCOUNTER → 2020-10-28 | Outpatient (CLI) | payer OTHER ==
[~2020-10-28] MED LIST changes: +ISOSORBIDE DN 110 MG PO
== END ==
LOC: SJCVC 13:19
PROVIDERS: ATTEND Internal Medicine Cardiovascular Disease
DX: R94.31 Abnormal electrocardiogram [ECG] [EKG] (principal); I48.0 Paroxysmal atrial fibrillation; I10 Essential (primary) hypertension; E78.5 Hyperlipidemia, unspecified; R07.9 Chest pain, unspecified; R06.00 Dyspnea, unspecified; E11.9 Type 2 diabetes mellitus without complications; E78.00 Pure hypercholesterolemia, unspecified; Z87.891 Personal history of nicotine dependence; Z79.899 Other long term (current) drug therapy; Z91.048 Other nonmedicinal substance allergy status; Z79.82 Long term (current) use of aspirin; Z91.040 Latex allergy status; Z88.1 Allergy status to other antibiotic agents; Z88.2 Allergy status to sulfonamides

== ENCOUNTER → 2020-10-30 | Outpatient (CLI) | payer OTHER ==
[~2020-10-30] VITALS: Ht 160 cm; Wt 90.7 kg
[2020-10-30 07:11] VITALS: BP 114/48
--- NOTE | 2020-10-30 10:03 | CATHLAB ---
[facility] [place] [address] INVASIVE PROCEDURE REPORT Name: MARBIN HATCH Room #: REG [facility]#: [id number] Admission: 10/30/20 Attend Phys: Aaron Paulino MD Discharge: Date of : 51 Report #: [id number] THIS REPORT FOR: cc: Candace Abbott Diane C. DO Park, Jin S. MD ~ APPROVED REPORT Study performed: 10/30/2020 08:32:53 Patient Details Patient Status: Out-Patient Room #: The patient is a 65 year-old female Event Personnel Aaron Paulino Tile Molder, Loraine Mead RTR Monitor, Rohit Bright RN RN, Elham Berkowitz McConnell, Jordan RTR Travertine Installer Procedures Performed Art Access - R femoral artery* Left Heart Cath w/or w/o Coronaries 2788019 C Hemostasis with Manual pressure 92529 Initial Mod Sed Same Phys/QHP Gr5y 053896 13298 Mod Sed Same Phys/QHP Ea 407270 Indication Dyspnea, Positive stress test, Chest pain Risk Factors Hypercholesterolemia, Hypertension, Diabetes Procedure Narrative The Right Groin^ was infiltrated with 1% Lidocaine subcutaneous anesthesia. A PINNACLE 4FR Sheath #[id number] sheath was inserted into the RFA^. Coronary angiography was performed using coronary diagnostic catheters. The right coronary system was accessed and visualized with a JR4 catheter. The left coronary system was accessed and visualized with a JL4 catheter. The left ventricle was accessed and visualized with a PIGTAIL catheter. Hemostasis was obtained with manual pressure following sheath removal without any complications. The patient tolerated the procedure well and there were no complications associated with the procedure. There was no hematoma. [facility] [address] [address] INVASIVE PROCEDURE REPORT Name: MARBIN HATCH Room #: REG [facility]#: [id number] Admission: 10/30/20 Attend Phys: Aaron Paulino MD Discharge: Date of : 51 Report #: [id number] Intraoperative Conscious Sedation Sedation start time: 8:54 Case end Time: 9:19 Fentanyl 50 mcg Versed 1 mg Fluoro Time: 1.70 minutes Dose: DAP 5616.90 cGycm2 798 mGy Contrast Type and Amount: Omnipaque 45 ml Coronary Angiography The patient's coronary anatomy is right dominant. Diagnostic Cath Left Main The left main artery is a large-caliber vessel, patent with no flow-limiting lesions. LAD The LAD is a moderate-sized caliber vessel, traverses the anterior wall and terminates at the apex. There is a mild to moderate stenosis in the proximal/mid segment with calcification, 30 to 40%. Diagonal 1 This is a small to moderate-sized caliber vessel, patent with no flow-limiting lesions. Diagonal 2 This is a small to moderate-sized caliber vessel, patent with no flow-limiting lesions. Circumflex This is a moderate-sized caliber vessel, patent with no flow-limiting lesions. OM1 This is a small to moderate-sized caliber vessel, patent with no flow-limiting lesions. OM2 This is a moderate-sized caliber vessel, with mild disease proximally, 20%. Right Coronary The RCA is a dominant vessel, patent with no flow-limiting lesions. R PDA This is a moderate-sized caliber vessel, patent with no flow-limiting lesions. RPLV This is a small to moderate-sized caliber vessel, patent with no flow-limiting lesions. Left Ventriculography Left Ventriculography was not performed. Ejection Fraction was >55% based off patient's Nuclear Cardiac Stress Test. An LVEDP was measured and there is no gradient across the outflow tract. Hemodynamics The aortic pressure is 125/63 mmHg with a mean of 99 mmHg. The left ventricular pressure is 118/10 mmHg with a mean of mmHg. The left ventricular end diastolic pressure is 20 mmHg. [facility] [address] [place] [address] INVASIVE PROCEDURE REPORT Name: MARBIN HATCH Room #: REG CL ..#: [id number] Admission: 10/30/20 Attend Phys: Aaron Paulino MD Discharge: Date of : 51 Report #: [id number] Conclusion 1. There is mild to moderate disease in the LAD and OM2. 2. The RCA is dominant. 3. There is normal LV systolic function. 4. Recommend aggressive risk factor management. <ELECTRONICALLY SIGNED> By: Aaron Paulino MD 10/30/20 1003 1003 1003 Aaron Pauilno MD /INF
== END | disposition home or self-care (01) ==
LOC: CATH 06:26
PROVIDERS: ATTEND Internal Medicine Cardiovascular Disease
DX: R07.9 Chest pain, unspecified (principal); R94.39 Abnormal result of other cardiovascular function study; R06.00 Dyspnea, unspecified; I25.10 Atherosclerotic heart disease of native coronary artery without angina pectoris; I10 Essential (primary) hypertension; E11.9 Type 2 diabetes mellitus without complications; E78.00 Pure hypercholesterolemia, unspecified; Z90.49 Acquired absence of other specified parts of digestive tract; Z98.890 Other specified postprocedural states; Z79.899 Other long term (current) drug therapy; Z88.2 Allergy status to sulfonamides; Z91.040 Latex allergy status

== ENCOUNTER 2021-12-09 19:40 | Emergency (ER) | payer OTHER ==
[~2021-12-09] VITALS: Ht 160 cm; Wt 94.3 kg
[2021-12-09] MEDS ORDERED: CEPHALEXIN500 MG PO (20:33)
[2021-12-09 20:44] VITALS: BP 158/101
== END 2021-12-09 23:48 | disposition home or self-care (01) ==
LOC: ER 19:40
DX: L03.031 Cellulitis of right toe (principal); I10 Essential (primary) hypertension; E11.9 Type 2 diabetes mellitus without complications; Z88.8 Allergy status to other drugs, medicaments and biological substances; Z88.2 Allergy status to sulfonamides; Z88.1 Allergy status to other antibiotic agents; Z91.040 Latex allergy status; Z79.2 Long term (current) use of antibiotics; Z79.899 Other long term (current) drug therapy; Z90.49 Acquired absence of other specified parts of digestive tract; Z90.89 Acquired absence of other organs